=== PATIENT | male | born 2000 | race Caucasian/White ===

== ENCOUNTER 2024-02-07 20:25 | Emergency (ER) | payer OTHER, SELFPAY ==
[2024-02-07 20:37] VITALS: BP 130/89
--- NOTE | 2024-02-07 22:46 | ED.GENMED ---
History of Present Illness
General
Chief Complaint: Cough
Source: patient
Exam Limitations: none
Time Seen by Provider: 02/07/24 22:46
Nursing documentation reviewed up to this point in time: agreed with
Travel History
Have you had any contact with someone who has COVID-19?: No
Do you have any symptoms of coronavirus? Fever > 100 degrees, chills, cough, shortness of breath, sore throat, loss of taste or smell, muscle aches, or headache?: No
History of Present Illness
History of Present Illness:
Patient presents to ED secondary to persistent cough along with shortness of breath, as well as decreased appetite over the past 1 week. Patient was evaluated at different ED 4 days ago, where he tested negative for COVID, influenza, as well as
chest x-ray. Patient was prescribed amoxicillin at that visit, which appeared to improve his symptoms when it became worse again over the past 24 hours. Denies chest pain. Denies nausea, vomiting, or diarrhea. Denies headache. Denies sore
throat. Denies rash. Denies recent travel. Denies sick contact.
Past History
Past History
ED Past Medical History: Asthma, IDDM and Psychiatric
ED Past Surgical History: Urological (Circumcision October 2018)
Social History
Tobacco: Vaping
Alcohol: None
Drug: Marijuana
Personal: Single
Living: with family
Employment: Employed
Family History
Family History: Diabetes
Review of Systems
Review of Systems
Allergies reviewed?: Yes
All Other Systems: ROS reviewed and negative except as documented in HPI and ROS
Constitutional: Reports no symptoms; Denies fever
EENT: Reports no symptoms
Respiratory: Reports cough and trouble breathing
Cardiac: Reports no symptoms
ABD/GI: Reports no symptoms; Denies nausea, vomiting or diarrhea
Musculoskeletal: Reports muscle pain
Skin: Reports no symptoms; Denies rash
Neurological: Reports no symptoms; Denies headache
Phy Exam
Physical Exam
Physical Exam:
Physical Exam
General: mild distress, not acutely ill. afebrile
Head: nc/at. eomi
Neck: supple. no meningeal signs.
Heart: s1/s2 regular rate and rhythm, no murmur. equal radial pulses.
Lungs: mild respiratory distress. wheezing noted at bases.
Abdomen: normal bowel sounds. not tender.
Neuro: alert and oriented. no focal neurological deficits
Skin: no rash
Psychiatric: well kept. interactive and cooperative
Extremities: no edema. no calf tenderness.
Course
Orders/Labs/Results
Orders:
Orders
02/07/24 22:46
CR Chest - 2 Views Urgent
Comment:
Reason For Exam: cough/sob
02/07/24 23:33
0.9% Sodium Chloride 1000 ml [Nss] 1,000 ml IV BOLUS
Benzonatate [Tessalon Perles] 200 mg PO NOW STA
Dexamethasone Sod Phosphate [Decadron] 10 mg IV NOW STA
Ipratropium/Albuterol Sulfate [Duoneb] 3 ml INH R NOW STA
Ketorolac [Toradol] 15 mg IV NOW STA
02/07/24 23:34
Ipratropium/Albuterol Sulfate [Duoneb] 3 ml INH R NOW ONE
02/07/24 23:54
Basic Metabolic Panel Urgent
Complete Blood Count/With Diff Urgent
Magnesium Urgent
02/07/24 23:59
COVID-19 Antigen Urgent
Source: Nasal Swab
Influenza A+B Rapid Molecular Urgent
OVIDIO Source: Nasal Swab
Specimen Description:
02/08/24 01:52
Azithromycin [Zithromax] 500 mg PO NOW STA
Abnormal Lab Results
02/07/24
23:54
Absolute Lymphs (auto) 3.5 H 10^3/uL
(1.2-3.4)
Carbon Dioxide 20 L mmol/L
(22-30)
Creatinine 0.6 L mg/dL
(0.7-1.3)
Glucose 141 H mg/dl
(70-99)
02/07/24 23:54
02/07/24 23:54
Vital Signs
Initial and Last Documented VS:
Initial Vital Signs
Temp Pulse Resp BP Pulse Ox
98.8 F 110 18 130/89 96
02/07/24 20:37 02/07/24 20:37 02/07/24 20:37 02/07/24 20:37 02/07/24 20:37
Last Documented Vital Signs
Temp Pulse Resp BP Pulse Ox
98.8 F 110 18 101/58 95
02/07/24 20:37 02/07/24 20:37 02/07/24 20:37 02/08/24 01:00 02/08/24 00:41
MDM/Problems Addressed
MDM/Problems Addressed:
Chest x-ray: No acute findings. Patient with significant improvement symptoms after treatment.
History and exam consistent with likely acute bronchitis with bronchospasm with underlying asthma history. Patient will be given Zithromax along with short course of prednisone as well as cough medication. Advised PCP follow-up next week for
reevaluation. Patient expresses understanding at time of discharge.
*Critical Care Note
Total Time (30-74mins, 75-104mins- exclusive of procedures): Not Applicable
ED Attending Note
-
Portions of this chart may have been created with voice recognition software.� Occasional wrong word or��sound alike� substitutions may have occurred due to the inherent limitations of voice recognition software.
Discharge Plan
Departure
Patient Disposition: Home (Routine Discharge)
Date of Disposition: 02/08/24
Time of Disposition: 01:49
Patient with high blood pressure during this ER visit?: Yes
Condition: Good
Discharge Problem:
Acute bronchitis
Instructions: Acute Bronchitis, Adult (DC)
Prescriptions:
New
prednisone 50 mg tablet
50 mg PO DAILY Qty: 2 0RF
benzonatate 100 mg capsule
100 mg PO TID PRN (Reason: Cough) Qty: 14 0RF
azithromycin [Zithromax] 250 mg tablet
250 mg PO DAILY 4 Days Qty: 4 0RF
No Action
insulin glargine [Lantus U-100 Insulin] 100 unit/mL Solution
35 unit SC HS
insulin aspart U-100 [Novolog U-100 Insulin aspart] 100 unit/mL Solution
1 sliding scale dose SC DIRECTED
Rx Instructions:
24-40 units
alprazolam 0.5 mg Tablet
0.5 mg PO HS PRN (Reason: ANXIETY)
albuterol sulfate 90 mcg/actuation HFA aerosol inhaler
2 puff INHALATION R Q4HPRN PRN (Reason: WHEEZING)
(DME) Blood Glucose Test 1 EACH strip
1 ea MC QID Qty: 200 0RF
Rx Instructions:
CONTOUR NEXT test strips. Test before each meal and bedtime
budesonide-formoterol [Symbicort] 1 PUFF HFA aerosol inhaler
2 puff inhalation R BID 30 Days Qty: 1 0RF
(DME) lancets 1 EACH misc
1 ea MC QID Qty: 200 0RF
Rx Instructions:
Contour Next lancets to test QID as directed
Referrals:
Sushant Ballard MD [Family Provider] -
Activity Restrictions/Additional Instructions:
As discussed, please follow-up with your primary care physician next week for reevaluation. Your prescriptions have been sent electronically to [facility] in [place].
Interventions
Interventions:
*Risk Screen - Suicide Last Done: 02/07/24 20:37
*General Assessment Last Done: 02/07/24 20:37
*Neglect/Abuse Screening Last Done: 02/07/24 20:37
ED- Fall Risk Assessment Last Done: 02/08/24 00:42
*ED COVID-19 Vaccine History Last Done: 02/08/24 02:13
*Nursing Disposition Last Done: 02/08/24 02:13
ED- Pulmonary Assessment Last Done: 02/08/24 00:42
Discharge Date and Time
Discharge Date/Time: 02/08/24 02:13
[2024-02-07 23:54] VITALS: BP 144/96
[2024-02-07] MEDS: NSS 1000 IV (23:59)
[2024-02-08] VITALS: BP 126/85
[2024-02-08] MEDS: DECADRON 10 MG IV (00:02)
[2024-02-08] MEDS: TORADOL 15 MG IV (00:03)
[2024-02-08] MEDS: DUONEB 3 ML INH ×2 (00:03→00:04)
[2024-02-08] MEDS: TESSALON PERLES 200 MG PO (00:04)
[2024-02-08 00:05] VITALS: BMI 31.5
[2024-02-08 00:30] LABS: COVID-19 Antigen Negative (Negative)
[2024-02-08 00:34] LABS: Blood Urea Nitrogen 10 mg/dl (9-20); Calcium 10.1 mg/dl (8.4-10.2); Carbon Dioxide 20 mmol/L (22-30); Chloride 103 mmol/L (98-107); Estimated Creatinine Clearance > 125 ml/min; Glucose 141 mg/dl (70-99); Magnesium 1.9 mg/dl (1.6-2.3); Potassium 4.1 mmol/L (3.5-5.1); Sodium 138 mmol/L (135-145); eGFR > 60.00
[2024-02-08 00:38] LABS: % Basophils 0.6 % (0-2); % Eosinophils 1.4 % (0-6); % Immature Granulocytes 0.3 % (0-0.5); % Lymphocytes 38.7 % (20.5-51.1); Absolute Basophils 0.1 10^3/uL (0-0.2); Absolute Eosinophils 0.1 10^3/uL (0-0.7); Absolute Lymphocytes 3.5 10^3/uL (1.2-3.4); Absolute Monocytes 0.5 10^3/uL (0.1-0.6); Absolute Neutrophils 4.9 10^3/uL (1.4-6.5); Hemoglobin 15.4 g/dL (13.0-18.0); Mean Corp Hgb Conc. 35.8 g/dL (33.0-37.0); Mean Corpuscular Hgb 29.7 pg (27.0-31.0); Mean Platelet Volume 10.2 fL (7.4-10.4); Nucleated Red Blood Cells % 0 % (-); Platelet Count 257 10^3/uL (130-400); Red Blood Cell Count 5.18 10^6/uL (4.70-6.10); Red Cell Dist. Width 12.2 % (11.5-14.5)
[2024-02-08 01:00] VITALS: BP 101/58
[2024-02-08] MEDS: ZITHROMAX 500 MG PO (01:58)
== END 2024-02-08 02:13 | disposition home or self-care (01) ==
LOC: EMR 20:25
PROVIDERS: EMERGENCY PHYSICIAN Emergency Medicine; FAMILY PHYSICIAN Family Medicine
DX: J20.9 Acute bronchitis, unspecified (principal); F17.290 Nicotine dependence, other tobacco product, uncomplicated
CPT/HCPCS: 99284; 96374; 96375; 96361; 94640; 71046; 80048; 83735; 85025; 87502; 87811

== ENCOUNTER 2024-05-14 00:23 | Emergency (ER) | payer OTHER, SELFPAY ==
[2024-05-14 00:44] VITALS: BP 130/83
--- NOTE | 2024-05-14 01:03 | ED.GENMED ---
History of Present Illness
General
Chief Complaint: Chest Problem
Source: patient
Exam Limitations: none
Time Seen by Provider: 05/14/24 00:51
History of Present Illness
History of Present Illness:
This is a 23 year old male that comes in with c/o left sided chest pain. States that he started on Friday with his chest feeling weird. State that it feels like it did when he had the Pneumomediastinum. States that it is hard to take a deep breath.
States that he felt like his heart was racing and it would come and go. States that he feels better when he is laying in bed but when he is up moving around the pain gets worse. States that he has also had diarrhea. Denies any fever, chills, abd
pain, nausea, vomiting, headache, dizziness, urinary burning.
Past History
Past History
ED Past Medical History: Asthma, IDDM, Psychiatric (Anxiety, Depression, OCD) and Other (Pilonidal cyst, Pneumomediastinum. )
ED Past Surgical History: Urological (Circumcision October 2018)
Social History
Tobacco: Vaping
Alcohol: Occasional
Drug: Marijuana
Personal: Single
Living: with family
Employment: Employed
Family History
Family History: Diabetes
Review of Systems
Review of Systems
All Other Systems: ROS reviewed and negative except as documented in HPI and ROS
Constitutional: Reports no symptoms; Denies fever or chills
EENT: Reports no symptoms
Respiratory: Reports trouble breathing; Denies cough
Cardiac: Reports chest pain
ABD/GI: Reports diarrhea; Denies abdominal pain, nausea or vomiting
: Reports no symptoms; Denies dysuria, frequency or urgency
Musculoskeletal: Reports no symptoms
Skin: Reports no symptoms
Neurological: Reports no symptoms; Denies dizzy or headache
Psychiatric: Reports no symptoms
Phy Exam
General Physical Exam
General Presentation: no apparent distress
General age: appears stated age
General Skin: warm and dry
General Habitus: normal
General Mental: alert
General Hydration: appears well hydrated
ENT Exam
ENT Exam: TM's normal, pharynx normal and neck supple
Eye Exam
Eye Exam: EOMI
Cardiovascular Exam
Cardiovascular Exam: no edema, normal peripheral pulses and irregularly irregular
Pulmonary Exam
Pulmonary Exam: lungs clear, no respiratory distress, no rales, chest non tender, no crackles, no rhonchi, no wheezing and no cough
Gastrointestinal Exam
Gastrointestinal Exam: normal bowel sounds, non tender, soft, no organomegaly, no pulsatile mass and non distended
Musculoskeletal Exam
Musculoskeletal Exam: full ROM and no edema
Skin Exam
Skin Exam: normal color, warm/dry, no rash and no petechia
Psychiatric Exam
Psychiatric Exam: normal mood/affect
Course
Orders/Labs/Results
Orders:
Orders
05/14/24 00:36
EKG [Electrocardiogram (*1)] Urgent
Reason for Study: Chest Pain
EKG- Treatment ONCE
05/14/24 01:02
Ketorolac [Toradol] 30 mg IV NOW STA
05/14/24 01:24
Complete Blood Count/With Diff Urgent
Comprehensive Metabolic Panel Urgent
Troponin I Urgent
05/14/24 02:[address] [CT Chest Pe Study] Urgent
Comment: hx of pneumedastinum
Reason For Exam: chest pain r/o pe
Abnormal Lab Results
05/14/24
01:24
RBC 4.67 L 10^6/uL
(4.70-6.10)
Carbon Dioxide 18 L mmol/L
(22-30)
Creatinine 0.6 L mg/dL
(0.7-1.3)
Glucose 269 H mg/dl
(70-99)
05/14/24 01:24
0621/24 01:24
Vital Signs
Initial and Last Documented VS:
Initial Vital Signs
Temp Pulse Resp BP Pulse Ox
98.4 F 66 16 130/83 98
05/14/24 00:44 05/14/24 00:44 05/14/24 00:44 05/14/24 00:44 05/14/24 00:44
Last Documented Vital Signs
Temp Pulse Resp BP Pulse Ox
98.4 F 66 16 130/83 98
05/14/24 00:44 05/14/24 00:44 05/14/24 00:44 05/14/24 00:44 05/14/24 00:44
Manager Local consulted with Physician
Manager Local consulted with physician?: Yes
Name of Physician Consulted: Dr. Dominguez
MDM/Problems Addressed
Differential Diagnosis Includes:
PE, Pneumomediastinum,
MDM/Problems Addressed:
This is a 23 year old male that comes in with c/o left sided chest pain. States that this started on Friday. States that he feels like his heart is racing and that he is SOB. State that his chest hurts more with deep breathing. States that he feel
better when he lays down but moving his pain increases.
Will get labs and CT chest.
Back into see patient. Explained that his blood work is normal. CT of the chest ix negative for any PE and there is no Pneumomediastinum noted. Will have patient follow up with the Family doctor. Patient can use Tylenol and Ibuprofen for pain and
alternate. Patient to return with any concerns.
Chronic conditions affecting care:
History of Pneumomediastinum,
Chronic conditions affecting care: Asthma
Acute Exacerbation and/or Progression of Chronic Illness:
NA
*Radiology
Radiology exam reviewed: radiology read reviewed (Ct chest night hawk- good bolus, mild motion artifact. NO definite pulmonary embolism. Heart size s normal. NO acute thoracic aortic pathology. No focal consolidation. )
*EKG
Interpreted by ED Provider?: Yes
Heart Rate: 75
Rate: normal
Rhythm: sinus arrhythmia
[place]: normal axis
QRS Pattern: normal QRS
Ischemia: no ischemia
*Critical Care Note
Total Time (30-74mins, 75-104mins- exclusive of procedures): Not Applicable
ED Attending Note
-
Portions of this chart may have been created with voice recognition software.� Occasional wrong word or��sound alike� substitutions may have occurred due to the inherent limitations of voice recognition software.
Discharge Plan
Departure
Patient Disposition: Home (Routine Discharge)
Date of Disposition: 05/14/24
Time of Disposition: 03:34
Patient with high blood pressure during this ER visit?: Yes
Condition: Good
Covid-19: Not Applicable
Discharge Problem:
Chest pain
Instructions: Chest Pain PCP Follow Up, BLOOD PRESSURE
Prescriptions:
No Action
insulin glargine [Lantus U-100 Insulin] 100 unit/mL Solution
35 unit SC HS
insulin aspart U-100 [Novolog U-100 Insulin aspart] 100 unit/mL Solution
1 sliding scale dose SC DIRECTED
Rx Instructions:
24-40 units
alprazolam 0.5 mg Tablet
0.5 mg PO HS PRN (Reason: ANXIETY)
albuterol sulfate 90 mcg/actuation HFA aerosol inhaler
2 puff INHALATION R Q4HPRN PRN (Reason: WHEEZING)
(DME) Blood Glucose Test 1 EACH strip
1 ea MC QID Qty: 200 0RF
Rx Instructions:
CONTOUR NEXT test strips. Test before each meal and bedtime
budesonide-formoterol [Symbicort] 1 PUFF HFA aerosol inhaler
2 puff inhalation R BID 30 Days Qty: 1 0RF
(DME) lancets 1 EACH misc
1 ea MC QID Qty: 200 0RF
Rx Instructions:
Contour Next lancets to test QID as directed
prednisone 50 mg tablet
50 mg PO DAILY Qty: 2 0RF
benzonatate 100 mg capsule
100 mg PO TID PRN (Reason: Cough) Qty: 14 0RF
azithromycin [Zithromax] 250 mg tablet
250 mg PO DAILY 4 Days Qty: 4 0RF
Referrals:
Sushant Ballard MD [Family Provider] - Follow up in 2-3 days
Activity Restrictions/Additional Instructions:
As discussed, your blood work is normal. Your CT is negative for any Pulmonary embolism and there is no sign of Pneumomediastinum. You may use Tylenol and alternate with Ibuprofen. Follow up with the family doctor for recheck. IF YOU HAVE INCREASED
OR CHANGING CHEST PAIN, OR YOU HAVE ANY OTHER CONCERNS PLEASE RETURN TO THE EMERGENCY ROOM.
Interventions
Interventions:
*Risk Screen - Suicide Last Done: 05/14/24 00:44
*General Assessment Last Done: 05/14/24 00:44
*Neglect/Abuse Screening Last Done: 05/14/24 00:44
ED- Fall Risk Assessment Last Done: 05/14/24 00:44
*ED COVID-19 Vaccine History Last Done: 05/14/24 00:44
ED- Cardiac Assessment Last Done: 05/14/24 01:25
ED- Pulmonary Assessment Last Done: 05/14/24 01:25
Discharge Date and Time
Print Language: ARMENIAN
[2024-05-14] MEDS: TORADOL 30 MG IV (01:24)
[2024-05-14 01:25] VITALS: BMI 30.9
[2024-05-14 01:37] LABS: % Basophils 0.7 % (0-2); % Eosinophils 1.5 % (0-6); % Immature Granulocytes 0.1 % (0-0.5); % Lymphocytes 36.4 % (20.5-51.1); % Monocytes 4.8 % (1.7-9.3); % Neutrophils 56.5 % (42.2-75.2); Absolute Basophils 0.1 10^3/uL (0-0.2); Absolute Eosinophils 0.1 10^3/uL (0-0.7); Absolute Lymphocytes 2.7 10^3/uL (1.2-3.4); Absolute Monocytes 0.4 10^3/uL (0.1-0.6); Absolute Neutrophils 4.1 10^3/uL (1.4-6.5); Hematocrit 39.3 % (39.0-52.0); Mean Corp Hgb Conc. 35.6 g/dL (33.0-37.0); Mean Corpuscular Volume 84.2 fL (80.0-94.0); Mean Platelet Volume 10.4 fL (7.4-10.4); Nucleated Red Blood Cells % 0 % (-); Platelet Count 233 10^3/uL (130-400); Red Blood Cell Count 4.67 10^6/uL (4.70-6.10); Red Cell Dist. Width 12.4 % (11.5-14.5); White Blood Cell Count 7.3 10^3/uL (4.8-10.8)
[2024-05-14 01:52] LABS: AST (SGOT) 33 U/L (17-59); Albumin 4.6 g/dl (3.5-5.0); Alkaline Phosphatase 79 U/L (38-126); Blood Urea Nitrogen 15 mg/dl (9-20); Calcium 10.1 mg/dl (8.4-10.2); Carbon Dioxide 18 mmol/L (22-30); Chloride 103 mmol/L (98-107); Estimated Creatinine Clearance > 125 ml/min; Glucose 269 mg/dl (70-99); Potassium 3.7 mmol/L (3.5-5.1); Sodium 137 mmol/L (135-145); Total Bilirubin 0.4 mg/dl (0.2-1.3); Total Protein 7.1 g/dl (6.3-8.2); eGFR > 60.00
[2024-05-14 02:02] LABS: ALT (SGPT) 30 U/L (0-50)
[2024-05-14 02:05] LABS: Troponin I 0.012 ng/ml
[2024-05-14 03:36] VITALS: BP 116/75
== END 2024-05-14 03:49 | disposition home or self-care (01) ==
LOC: EMR 00:23
PROVIDERS: Clinical Nurse Specialist Family Health; EMERGENCY PHYSICIAN Student in an Organized Health Care Education/Training Program; FAMILY PHYSICIAN Family Medicine
DX: R07.89 Other chest pain (principal); R03.0 Elevated blood-pressure reading, without diagnosis of hypertension; F17.290 Nicotine dependence, other tobacco product, uncomplicated; E11.9 Type 2 diabetes mellitus without complications; J45.909 Unspecified asthma, uncomplicated
CPT/HCPCS: 99285; 96374; 71275; 80053; 84484; 85025; 93005; 99284; Q9967

== ENCOUNTER 2024-12-04 04:07 | Emergency (ER) | payer OTHER, SELFPAY ==
[2024-12-04 04:17] VITALS: BP 134/87
--- NOTE | 2024-12-04 04:33 | ED.GENMED ---
History of Present Illness
General
Chief Complaint: Cough
Source: patient
Exam Limitations: none
Time Seen by Provider: 12/04/24 04:29
History of Present Illness
History of Present Illness:
See MDM
Past History
Past History
ED Past Medical History: Asthma, IDDM, Psychiatric (Anxiety, Depression, OCD) and Other (Pilonidal cyst, Pneumomediastinum. )
ED Past Surgical History: Urological (Circumcision October 2018)
Social History
Tobacco: Vaping
Alcohol: Occasional
Drug: Marijuana
Personal: Single
Living: with family
Employment: Employed
Family History
Family History: Diabetes
Phy Exam
Physical Exam
Physical Exam:
See MDM
Course
Orders/Labs/Results
Orders:
Orders
12/04/24 04:32
CR Chest - 2 Views Urgent
Comment:
Reason For Exam: Cough and SOB
12/04/24 04:35
COVID-19 Antigen Urgent
Source: Nasal Swab
Influenza A+B Rapid Molecular Urgent
OVIDIO Source: Nasal Swab
Specimen Description:
Vital Signs
Initial and Last Documented VS:
Initial Vital Signs
Temp Pulse Resp BP Pulse Ox
99.2 F 98 18 134/87 96
12/04/24 04:17 12/04/24 04:17 12/04/24 04:17 12/04/24 04:17 12/04/24 04:17
Last Documented Vital Signs
Temp Pulse Resp BP Pulse Ox
99.2 F 98 18 134/87 96
12/04/24 04:17 12/04/24 04:17 12/04/24 04:17 12/04/24 04:17 12/04/24 04:17
MDM/Problems Addressed
Differential Diagnosis Includes:
HPI and MDM Narrative:
24-year-old male presenting with chest discomfort and cough. He states he has been feeling unwell for the past several days. He has a dry cough. He does have sick contacts at work. Patient states pain is worse when he takes a deep breath. On
exam, he is extremely well-appearing nontoxic. Lungs are clear. There is a mild bronchospastic cough. Will obtain COVID and flu and chest x-ray
Physical exam
General: Well appearing and non-toxic
HEENT: protecting airway
Neck: appears supple
CV: No evidence of cyanosis. Regular rate and rhythm
Resp: No accessory muscle use. Lungs clear
Abd: Non-distended
Extremities: No deformities
Neuro: alert
Psych: Normal affect
Skin: Intact
Problems Addressed including Acute and Chronic Conditions affecting care:
1. Viral syndrome
Acuity: acute
Prognosis: stable
Details: Will obtain COVID and flu testing. Will obtain chest x-ray
Updates
Chest x-ray clear and viral testing negative. Discussed return precautions
Differential Diagnosis (but not limited to): COVID, flu, pneumonia, pleuritic chest
Testing considered: EKG but symptoms appear to be respiratory
Drug therapy (if applicable): OTC meds, please see d/c instruction regarding Rx drugs
Amount and/or Complexity of Data Reviewed
Clinical info obtained from: Patient
External data reviewed: N/A
Labs I independently reviewed (but not limited to): N/A
Radiology: X-ray independently reviewed: Chest x-ray clear
Pulse Ox: not hypoxic
EKG independently reviewed: N/A
Associate Professor Of Management: N/A
Critical Care: N/A
Risk of Complication:
Social Determinants of health: Good social support
Discussed with other providers: N/A
Escalation of Care includes Admit/Obs: After being observed in the Emergency Department, pt stable for discharge.
Occasional wrong word or 'sound a like' substitutions may have occurred due to the inherent limitations of voice recognition software. Read the chart carefully and recognize, using context, where substitutions have occurred.
*Critical Care Note
Total Time (30-74mins, 75-104mins- exclusive of procedures): Not Applicable
ED Attending Note
-
Portions of this chart may have been created with voice recognition software.� Occasional wrong word or��sound alike� substitutions may have occurred due to the inherent limitations of voice recognition software.
Discharge Plan
Departure
Patient Disposition: Home (Routine Discharge)
Date of Disposition: 12/04/24
Time of Disposition: 06:42
Patient with high blood pressure during this ER visit?: No
Discharge Problem:
Upper respiratory infection, viral
Instructions: Viral Upper Respiratory Infection, Adult (DC)
Prescriptions:
No Action
insulin glargine [Lantus U-100 Insulin] 100 unit/mL Solution
35 unit SC HS
insulin aspart U-100 [Novolog U-100 Insulin aspart] 100 unit/mL Solution
1 sliding scale dose SC DIRECTED
Rx Instructions:
24-40 units
alprazolam 0.5 mg Tablet
0.5 mg PO HS PRN (Reason: ANXIETY)
albuterol sulfate 90 mcg/actuation HFA aerosol inhaler
2 puff INHALATION R Q4HPRN PRN (Reason: WHEEZING)
(DME) Blood Glucose Test 1 EACH strip
1 ea MC QID Qty: 200 0RF
Rx Instructions:
CONTOUR NEXT test strips. Test before each meal and bedtime
budesonide-formoterol [Symbicort] 1 PUFF HFA aerosol inhaler
2 puff inhalation R BID 30 Days Qty: 1 0RF
(DME) lancets 1 EACH misc
1 ea MC QID Qty: 200 0RF
Rx Instructions:
Contour Next lancets to test QID as directed
prednisone 50 mg tablet
50 mg PO DAILY Qty: 2 0RF
benzonatate 100 mg capsule
100 mg PO TID PRN (Reason: Cough) Qty: 14 0RF
azithromycin [Zithromax] 250 mg tablet
250 mg PO DAILY 4 Days Qty: 4 0RF
Activity Restrictions/Additional Instructions:
Please return for any worsening symptoms.
You may return at any time if you have further concerns.
Please follow up with your doctor at the first available appointment, preferably this week.
Thank you for choosing [facility].
Interventions
Interventions:
*Risk Screen - Suicide Last Done: 12/04/24 04:36
*General Assessment Last Done: 12/04/24 04:36
*Neglect/Abuse Screening Last Done: 12/04/24 04:36
*ED COVID-19 Vaccine History Last Done: 12/04/24 04:36
ED- Pulmonary Assessment Last Done: 12/04/24 04:36
Discharge Date and Time
Print Language: HUNGARIAN
[2024-12-04 04:36] VITALS: BMI 31.1
[2024-12-04 04:57] LABS: COVID-19 Antigen Negative (Negative)
[2024-12-04 06:50] VITALS: BP 138/81
== END 2024-12-04 07:00 | disposition home or self-care (01) ==
LOC: EMR 04:07
PROVIDERS: EMERGENCY PHYSICIAN Student in an Organized Health Care Education/Training Program; FAMILY PHYSICIAN Family Medicine
DX: J06.9 Acute upper respiratory infection, unspecified (principal); R07.89 Other chest pain; Z11.52 Encounter for screening for COVID-19; E11.9 Type 2 diabetes mellitus without complications; J45.909 Unspecified asthma, uncomplicated; F41.9 Anxiety disorder, unspecified; F32.A Depression, unspecified; F42.9 Obsessive-compulsive disorder, unspecified; F17.290 Nicotine dependence, other tobacco product, uncomplicated; Z79.4 Long term (current) use of insulin; Z83.3 Family history of diabetes mellitus
CPT/HCPCS: 99283; 71046; 87502; 87811

== ENCOUNTER 2024-12-13 19:54 | Emergency (ER) | payer OTHER, SELFPAY ==
[2024-12-13 20:02] VITALS: BP 148/98
[2024-12-13 20:28] LABS: % Basophils 0.5 % (0-2); % Eosinophils 0.6 % (0-6); % Immature Granulocytes 0.4 % (0-0.5); % Lymphocytes 21.1 % (20.5-51.1); % Monocytes 5.3 % (1.7-9.3); % Neutrophils 72.1 % (42.2-75.2); Absolute Basophils 0.1 10^3/uL (0-0.2); Absolute Eosinophils 0.1 10^3/uL (0-0.7); Absolute Immature Granulocytes 0.1 10^3/uL (0-0.05); Absolute Lymphocytes 2.5 10^3/uL (1.2-3.4); Absolute Monocytes 0.6 10^3/uL (0.1-0.6); Absolute Neutrophils 8.7 10^3/uL (1.4-6.5); Hematocrit 41.6 % (39.0-52.0); Mean Corp Hgb Conc. 33.7 g/dL (33.0-37.0); Mean Corpuscular Volume 86.1 fL (80.0-94.0); Mean Platelet Volume 9.3 fL (7.4-10.4); Nucleated Red Blood Cells % 0 % (-); Platelet Count 363 10^3/uL (130-400); Red Blood Cell Count 4.83 10^6/uL (4.70-6.10); Red Cell Dist. Width 11.9 % (11.5-14.5); White Blood Cell Count 12.1 10^3/uL (4.8-10.8)
[2024-12-13 20:31] LABS: Urine Albumin 1+ (Neg - Trace); Urine Bilirubin Negative (Negative); Urine Character Slightly Cloudy (Clear); Urine Color Yellow; Urine Glucose Negative (Negative); Urine Ketone Negative (Negative); Urine Leukocyte 2+ (Negative); Urine Nitrite Negative (Negative); Urine Occult Blood 4+ (Negative); Urine Urobilinogen Negative (Neg - 1+)
[2024-12-13 20:47] LABS: ALT (SGPT) 16 U/L (0-50); AST (SGOT) 21 U/L (17-59); Albumin 4.2 g/dl (3.5-5.0); Alkaline Phosphatase 129 U/L (38-126); Blood Urea Nitrogen 6 mg/dl (9-20); Calcium 9.5 mg/dl (8.4-10.2); Carbon Dioxide 28 mmol/L (22-30); Chloride 98 mmol/L (98-107); Glucose 144 mg/dl (70-99); Potassium 3.9 mmol/L (3.5-5.1); Sodium 138 mmol/L (135-145); Total Bilirubin 0.6 mg/dl (0.2-1.3); Total Protein 7.8 g/dl (6.3-8.2); eGFR > 60.00
[2024-12-13 20:50] LABS: Urine Bacteria Few (Negative); Urine Red Blood Cell 80-90 /HPF (0-2); Urine White Cell 60-70 /HPF (0-5)
[2024-12-13 21:36] VITALS: BP 128/76
[2024-12-13 21:37] VITALS: BMI 30.5
[2024-12-13] MEDS: BACTRIM DS 800 MG/160 MG 1 TABLET PO (21:58)
--- NOTE | 2024-12-13 22:42 | ED.GENMED ---
History of Present Illness
General
Chief Complaint: Urinary Symptoms
Source: patient
Exam Limitations: none
Time Seen by Provider: 12/13/24 21:33
Nursing documentation reviewed up to this point in time: agreed with
History of Present Illness
History of Present Illness:
Patient to ED wi complaint of pain with urination. Symptoms started a few days ago. Denies fever/chills. Denies any testicular pain/swelling. No penile discharge. Brought self to ED for eval,
Past History
Past History
ED Past Medical History: Asthma, IDDM, Psychiatric (Anxiety, Depression, OCD) and Other (Pilonidal cyst, Pneumomediastinum. )
ED Past Surgical History: Urological (Circumcision October 2018)
Social History
Tobacco: Vaping
Alcohol: Occasional
Drug: Marijuana
Personal: Single
Living: with family
Employment: Employed
Family History
Family History: Diabetes
Review of Systems
Review of Systems
Allergies reviewed?: Yes
All Other Systems: ROS reviewed and negative except as documented in HPI and ROS
Constitutional: Reports no symptoms
EENT: Reports no symptoms
Respiratory: Reports no symptoms
Cardiac: Reports no symptoms
ABD/GI: Reports no symptoms
: Reports dysuria
Musculoskeletal: Reports no symptoms
Skin: Reports no symptoms
Neurological: Reports no symptoms
Psychiatric: Reports no symptoms
Phy Exam
General Physical Exam
General Presentation: well appearing and no apparent distress
General age: appears stated age
General Skin: warm and dry
General Habitus: normal
General Mental: alert
Gastrointestinal Exam
Gastrointestinal Exam: normal bowel sounds, non tender, no organomegaly and no cva tenderness
Genitourinary Exam Male
Exam Male: circumcised, no discharge, normal external genitalia, normal testicular exam, no evidence of trauma, no lesions, no testicular swelling and no testicular tenderness
Musculoskeletal Exam
Musculoskeletal Exam: full ROM
Skin Exam
Skin Exam: normal color, warm/dry and no rash
Psychiatric Exam
Psychiatric Exam: normal mood/affect
Course
Orders/Labs/Results
Orders:
Orders
12/13/24 20:12
Complete Blood Count/With Diff Urgent
Comprehensive Metabolic Panel Urgent
Urinalysis Reflex To Culture Urgent
Date Specimen was Collected: 12/13/24
Time Specimen was Collected: 20:04
Urine Microscopic Reflex Cult Urgent
Urine Culture Urgent
OVIDIO Source: U
Specimen Description:
Date Specimen was Collected: 12/13/24
Time Specimen was Collected: 20:04
12/13/24 21:39
Add On- LAB Urgent
Tests Added?: Chlamydia/GC pcr urine
12/13/24 21:43
Sulfamethox./Trimethoprim Ds [Bactrim Ds 800 mg/160 mg] 1 tablet PO NOW STA
Abnormal Lab Results
12/13/24
20:12
WBC 12.1 H 10^3/uL
(4.8-10.8)
Abs Immat Gran (auto) 0.1 H 10^3/uL
(0-0.05)
Absolute Neuts (auto) 8.7 H 10^3/uL
(1.4-6.5)
BUN 6 L mg/dl
(9-20)
Creatinine 0.6 L mg/dL
(0.7-1.3)
Glucose 144 H mg/dl
(70-99)
Alkaline Phosphatase 129 H U/L
(38-126)
Ur Occult Blood Reflex 4+ A
(Negative)
Leukocyte Esterase Rfl 2+ A
(Negative)
Urine RBC 80-90 A /HPF
(0-2)
Urine WBC (Reflex) 60-70 A /HPF
(0-5)
Urine Bacteria (Reflex) Few A
(Negative)
Urine Albumin (Reflex) 1+ A
(Neg - Trace)
12/13/24 20:12
12/13/24 20:12
Vital Signs
Initial and Last Documented VS:
Initial Vital Signs
Temp Pulse Resp Pulse Ox
98.9 F 103 16 97
12/13/24 20:01 12/13/24 20:01 12/13/24 20:01 12/13/24 20:01
Last Documented Vital Signs
Temp Pulse Resp BP Pulse Ox
98.9 F 87 16 128/76 99
12/13/24 20:01 12/13/24 21:36 12/13/24 21:36 12/13/24 21:36 12/13/24 21:36
*Critical Care Note
Total Time (30-74mins, 75-104mins- exclusive of procedures): Not Applicable
Update Note
Update Note:
UA reflecting UTI. Will place on Bactrim DS bid. He denies sexual activity however I sent urine for GC/Chlamydia. Cultures are pending. Given instructions on s/s to retuen to ED and he is agreeable to plan.
ED Attending Note
-
Portions of this chart may have been created with voice recognition software.� Occasional wrong word or��sound alike� substitutions may have occurred due to the inherent limitations of voice recognition software.
Discharge Plan
Departure
Patient Disposition: Home (Routine Discharge)
Date of Disposition: 12/13/24
Time of Disposition: 21:43
Patient with high blood pressure during this ER visit?: No
Condition: Good
Covid-19: Not Applicable
Discharge Problem:
Acute UTI
Instructions: Urinary Tract Infection, Adult (DC)
Prescriptions:
New
sulfamethoxazole-trimethoprim [Bactrim DS] 800-160 mg tablet
1 tab PO BID Qty: 14 0RF
No Action
insulin glargine [Lantus U-100 Insulin] 100 unit/mL Solution
35 unit SC HS
insulin aspart U-100 [Novolog U-100 Insulin aspart] 100 unit/mL Solution
1 sliding scale dose SC DIRECTED
Rx Instructions:
24-40 units
alprazolam 0.5 mg Tablet
0.5 mg PO HS PRN (Reason: ANXIETY)
albuterol sulfate 90 mcg/actuation HFA aerosol inhaler
2 puff INHALATION R Q4HPRN PRN (Reason: WHEEZING)
(DME) Blood Glucose Test 1 EACH strip
1 ea MC QID Qty: 200 0RF
Rx Instructions:
CONTOUR NEXT test strips. Test before each meal and bedtime
budesonide-formoterol [Symbicort] 1 PUFF HFA aerosol inhaler
2 puff inhalation R BID 30 Days Qty: 1 0RF
(DME) lancets 1 EACH misc
1 ea MC QID Qty: 200 0RF
Rx Instructions:
Contour Next lancets to test QID as directed
prednisone 50 mg tablet
50 mg PO DAILY Qty: 2 0RF
benzonatate 100 mg capsule
100 mg PO TID PRN (Reason: Cough) Qty: 14 0RF
azithromycin [Zithromax] 250 mg tablet
250 mg PO DAILY 4 Days Qty: 4 0RF
Referrals:
Sushant Ballard MD [Family Provider] - Follow up in 2-3 days
Activity Restrictions/Additional Instructions:
Return to the emergency department for any changes in/worsening of your symptoms
Interventions
Interventions:
*Risk Screen - Suicide Last Done: 12/13/24 21:32
*General Assessment Last Done: 12/13/24 21:32
*Neglect/Abuse Screening Last Done: 12/13/24 21:32
*ED COVID-19 Vaccine History Last Done: 12/13/24 21:32
*Nursing Disposition Last Done: 12/13/24 22:04
ED-Male Genitourinary Assessment Last Done: 12/13/24 21:32
Discharge Date and Time
Discharge Date/Time: 12/13/24 22:05
Print Language: FRENCH
== END 2024-12-13 22:05 | disposition home or self-care (01) ==
LOC: EMR 19:54
PROVIDERS: Emergency Medicine; EMERGENCY PHYSICIAN Emergency Medicine; FAMILY PHYSICIAN Family Medicine
DX: N39.0 Urinary tract infection, site not specified (principal); J45.909 Unspecified asthma, uncomplicated; E11.9 Type 2 diabetes mellitus without complications; F17.290 Nicotine dependence, other tobacco product, uncomplicated; Z79.4 Long term (current) use of insulin
CPT/HCPCS: 99283; 80053; 81003; 81015; 85025; 87086; 87147; 87491; 87591

== ENCOUNTER 2025-02-21 02:22 | Emergency (ER) | payer OTHER, SELFPAY ==
[2025-02-21 02:24] VITALS: BP 138/94
[2025-02-21 02:49] LABS: % Basophils 0.4 % (0-2); % Eosinophils 1.1 % (0-6); % Immature Granulocytes 0.4 % (0-0.5); % Lymphocytes 43.6 % (20.5-51.1); % Monocytes 3.7 % (1.7-9.3); % Neutrophils 50.8 % (42.2-75.2); Absolute Eosinophils 0.1 10^3/uL (0-0.7); Absolute Lymphocytes 4.2 10^3/uL (1.2-3.4); Absolute Monocytes 0.4 10^3/uL (0.1-0.6); Absolute Neutrophils 4.9 10^3/uL (1.4-6.5); Hematocrit 42.6 % (39.0-52.0); Hemoglobin 14.9 g/dL (13.0-18.0); Mean Corpuscular Hgb 28.8 pg (27.0-31.0); Mean Corpuscular Volume 82.4 fL (80.0-94.0); Mean Platelet Volume 9.8 fL (7.4-10.4); Nucleated Red Blood Cells % 0 % (-); Platelet Count 263 10^3/uL (130-400); Red Blood Cell Count 5.17 10^6/uL (4.70-6.10); White Blood Cell Count 9.7 10^3/uL (4.8-10.8)
[2025-02-21 02:55] LABS: Urine Albumin Negative (Neg - Trace); Urine Bilirubin Negative (Negative); Urine Character Clear (Clear); Urine Color Yellow; Urine Glucose 4+ (Negative); Urine Ketone Negative (Negative); Urine Leukocyte Negative (Negative); Urine Nitrite Negative (Negative); Urine Occult Blood Negative (Negative); Urine Specific Gravity 1.015 (<1.030); Urine Urobilinogen Negative (Neg - 1+)
[2025-02-21 03:05] LABS: ALT (SGPT) 19 U/L (0-50); AST (SGOT) 22 U/L (17-59); Albumin 4.7 g/dl (3.5-5.0); Alkaline Phosphatase 87 U/L (38-126); Blood Urea Nitrogen 13 mg/dl (9-20); Calcium 10.1 mg/dl (8.4-10.2); Carbon Dioxide 23 mmol/L (22-30); Chloride 102 mmol/L (98-107); Glucose 394 mg/dl (70-99); Potassium 4.6 mmol/L (3.5-5.1); Sodium 137 mmol/L (135-145); Total Bilirubin 0.6 mg/dl (0.2-1.3); Total Protein 7.4 g/dl (6.3-8.2); eGFR > 60.00
[2025-02-21 03:27] VITALS: BP 115/78; BMI 32.0
--- NOTE | 2025-02-21 03:31 | EDRN ---
Pt says he has been on multiple antibiotics for uti since November. Pt is currently taking Bactrim BID. Pt has discomfort, sometimes pain in his lower back that occasionally wraps around to his abdomen. Pt has frequency, difficulty urinating and
sometimes burning. Pt denies fever/chills/cough, cp, sob, n/v/d/c. Pt says his blood sugars are uncontrolled, typically 200-250. Pt has a CGM on RUE. Pt did not take his lantus insulin last night.
--- NOTE | 2025-02-21 03:33 | ED.GENMED ---
History of Present Illness
General
Chief Complaint: Flank Pain
Source: patient
Exam Limitations: none
Time Seen by Provider: 02/21/25 03:31
Nursing documentation reviewed up to this point in time: agreed with
History of Present Illness
History of Present Illness:
Pleasant 24-year-old male presents the emergency department with right flank pain. He states it has been going on for the last 2 days. Patient has recently been on Bactrim. He has been having frequent urination. Patient is diabetic and forgot to
take his insulin this evening. In triage they tevin his blood and then he realized that he did not take his insulin so he took his evening dose of insulin prior to coming back to the main department.
Past History
Past History
ED Past Medical History: Asthma, IDDM, Psychiatric (Anxiety, Depression, OCD) and Other (Pilonidal cyst, Pneumomediastinum. )
ED Past Surgical History: Urological (Circumcision October 2018)
Social History
Tobacco: Vaping
Alcohol: Occasional
Drug: Marijuana
Personal: Single
Living: with family
Employment: Employed
Family History
Family History: Diabetes
Review of Systems
Review of Systems
Allergies reviewed?: Yes
All Other Systems: ROS reviewed and negative except as documented in HPI and ROS
Constitutional: Reports no symptoms
EENT: Reports no symptoms
Respiratory: Reports no symptoms
Cardiac: Reports no symptoms
ABD/GI: Denies abdominal pain or nausea
: Reports flank pain
Musculoskeletal: Reports no symptoms
Skin: Reports no symptoms
Neurological: Reports no symptoms
Endocrine: Reports no symptoms
Hematologic/Lymphatic: Reports no symptoms
Psychiatric: Reports no symptoms
Phy Exam
General Physical Exam
General Presentation: well appearing and no apparent distress
General Skin: warm and dry
General Habitus: normal
General Mental: alert
General Hydration: appears well hydrated
ENT Exam
ENT Exam: EOMI, pharynx normal, neck supple and normocephalic
Eye Exam
Eye Exam: PERRL, cornea clear and conjunctiva normal
Cardiovascular Exam
Cardiovascular Exam: regular rate/rhythm, no edema, no murmur and normal peripheral pulses
Pulmonary Exam
Pulmonary Exam: lungs clear, no respiratory distress, no rales, no crackles, no rhonchi, no stridor, no wheezing and no cough
Gastrointestinal Exam
Gastrointestinal Exam: normal bowel sounds, non tender, soft, no organomegaly, no pulsatile mass and non distended
Neurological Exam
Neurological Exam: alert, oriented x3, no motor deficits and speech normal
Musculoskeletal Exam
Musculoskeletal Exam: full ROM, no edema and neuro vasc intact
Skin Exam
Skin Exam: normal color, warm/dry, no rash, no petechia and other (Right CVA tenderness to palpation)
Psychiatric Exam
Psychiatric Exam: normal mood/affect
Sepsis
Sepsis Screening
Sepsis Assessment: Sepsis Ruled Out
Sepsis Screen
Sepsis Screen: Sepsis Ruled Out
Date: 02/21/25
Time: 05:26
Course
Orders/Labs/Results
Orders:
Orders
02/21/25 02:32
Complete Blood Count/With Diff Urgent
Comprehensive Metabolic Panel Urgent
Urinalysis Reflex To Culture Urgent
Date Specimen was Collected: 02/21/25
Time Specimen was Collected: 02:28
02/21/25 03:44
CT Abd/pel Without Iv Or Oral Urgent
Comment:
Reason For Exam: r flank pain
Abnormal Lab Results
02/21/25 02/21/25
02:32 03:58
Absolute Lymphs (auto) 4.2 H 10^3/uL
(1.2-3.4)
Glucose 394 H mg/dl
(70-99)
Urine Glucose 4+ A
(Negative)
POC Glucose 274 H mg/dl
(70-99)
02/21/25 02:32
02/21/25 02:32
Vital Signs
Initial and Last Documented VS:
Initial Vital Signs
Temp Pulse Resp BP Pulse Ox
98.7 F 68 20 138/94 98
02/21/25 02:24 02/21/25 02:24 02/21/25 02:24 02/21/25 02:24 02/21/25 02:24
Last Documented Vital Signs
Temp Pulse Resp BP Pulse Ox
98.7 F 61 14 115/78 98
02/21/25 02:24 02/21/25 03:27 02/21/25 03:27 02/21/25 03:27 02/21/25 03:27
*Critical Care Note
Total Time (30-74mins, 75-104mins- exclusive of procedures): Not Applicable
ED Attending Note
-
Portions of this chart may have been created with voice recognition software.� Occasional wrong word or��sound alike� substitutions may have occurred due to the inherent limitations of voice recognition software.
Discharge Plan
Departure
Patient Disposition: Home (Routine Discharge)
Date of Disposition: 02/21/25
Time of Disposition: 05:15
Patient with high blood pressure during this ER visit?: Yes
Condition: Good
Discharge Problem:
Acute flank pain
Instructions: Flank Pain (DC), Abdominal pain in adults - Discharge instructions
Prescriptions:
No Action
insulin glargine [Lantus U-100 Insulin] 100 unit/mL Solution
35 unit SC HS
insulin aspart U-100 [Novolog U-100 Insulin aspart] 100 unit/mL Solution
1 sliding scale dose SC AC
Rx Instructions:
24-40 units
alprazolam 0.5 mg Tablet
0.5 mg PO HS PRN (Reason: anxiety)
albuterol sulfate 90 mcg/actuation HFA aerosol inhaler
2 puff INHALATION R Q4HPRN PRN (Reason: WHEEZING)
budesonide-formoterol [Symbicort] 1 PUFF HFA aerosol inhaler
2 puff inhalation R BID 30 Days Qty: 1 0RF
sulfamethoxazole-trimethoprim [Bactrim DS] 800-160 mg Tablet
1 tab PO BID
Referrals:
Sushant Ballard MD [Family Provider] -
Activity Restrictions/Additional Instructions:
It was a pleasure meeting you and taking part in your care. We hope for your continued healing and wellness.
Please read discharge instructions in their entirety. However, they are for general education and may not describe your exact diagnosis at discharge. Information on your ER visit and medical conditions were discussed with you along with appropriate
follow up information...
If indicated, please take your medications as instructed and indicated on discharge paperwork.
Please schedule a follow up appointment as directed. Call to schedule an appointment
Please return to the emergency department with ANY change in, persisting, or worsening of symptoms. If any of your symptoms do not improve, or persist, or become more severe within 6-12 hours, please return to the emergency department for further
care.
Please return to the emergency department if you develop a headache, neck pain/stiffness, fever greater than 100.4F, chest pain, shortness of breath, persistent nausea, vomiting, slurred speech, difficulty walking, numbness/tingling, weakness, signs
of infection or any other symptoms that are worrisome to you.
If you have any questions or concerns please do not hesitate to call the Hospital at or E-mail me directly at [email or web address]
Interventions
Interventions:
*Risk Screen - Suicide Last Done: 02/21/25 02:24
*General Assessment Last Done: 02/21/25 03:27
*Neglect/Abuse Screening Last Done: 02/21/25 02:24
*ED- Fall Risk Assessment Last Done: 02/21/25 03:27
*ED COVID-19 Vaccine History Last Done: 02/21/25 03:27
NH-Krmwgk-Erukvxadbs Assessment Last Done: 02/21/25 03:27
ED-Male Genitourinary Assessment Last Done: 02/21/25 03:27
Discharge Date and Time
Print Language: SINGAPOREAN
[2025-02-21 04:00] LABS: Glucose - Point of Care 274 mg/dl (70-99)
[2025-02-21 05:38] VITALS: BP 127/83
== END 2025-02-21 05:47 | disposition home or self-care (01) ==
LOC: EMR 02:22
PROVIDERS: EMERGENCY PHYSICIAN Student in an Organized Health Care Education/Training Program; FAMILY PHYSICIAN Family Medicine
DX: R10.9 Unspecified abdominal pain (principal); E11.9 Type 2 diabetes mellitus without complications; J45.909 Unspecified asthma, uncomplicated; F41.8 Other specified anxiety disorders; F17.290 Nicotine dependence, other tobacco product, uncomplicated; F42.9 Obsessive-compulsive disorder, unspecified; Z83.3 Family history of diabetes mellitus
CPT/HCPCS: 99284; 74176; 80053; 81003; 82962; 85025

== ENCOUNTER 2025-03-29 23:59 | Emergency (ER) | payer OTHER, SELFPAY ==
[2025-03-30 00:20] VITALS: BP 134/80
[2025-03-30 00:57] LABS: % Basophils 0.6 % (0-2); % Eosinophils 1.1 % (0-6); % Immature Granulocytes 0.1 % (0-0.5); % Lymphocytes 34.4 % (20.5-51.1); % Monocytes 4.9 % (1.7-9.3); % Neutrophils 58.9 % (42.2-75.2); Absolute Basophils 0.1 10^3/uL (0-0.2); Absolute Eosinophils 0.1 10^3/uL (0-0.7); Absolute Monocytes 0.4 10^3/uL (0.1-0.6); Absolute Neutrophils 5.2 10^3/uL (1.4-6.5); Hematocrit 43.1 % (39.0-52.0); Hemoglobin 14.5 g/dL (13.0-18.0); Mean Corp Hgb Conc. 33.6 g/dL (33.0-37.0); Mean Corpuscular Hgb 28.9 pg (27.0-31.0); Mean Platelet Volume 10.7 fL (7.4-10.4); Nucleated Red Blood Cells % 0 % (-); Platelet Count 222 10^3/uL (130-400); Red Blood Cell Count 5.01 10^6/uL (4.70-6.10); Red Cell Dist. Width 12.8 % (11.5-14.5); Urine Albumin 3+ (Neg - Trace); Urine Bilirubin Negative (Negative); Urine Character Slightly Cloudy (Clear); Urine Color Yellow; Urine Glucose 3+ (Negative); Urine Ketone Negative (Negative); Urine Leukocyte 3+ (Negative); Urine Nitrite Negative (Negative); Urine Occult Blood 3+ (Negative); Urine Urobilinogen Negative (Neg - 1+); White Blood Cell Count 8.9 10^3/uL (4.8-10.8)
[2025-03-30 01:10] LABS: ALT (SGPT) 17 U/L (0-50); AST (SGOT) 20 U/L (17-59); Albumin 4.5 g/dl (3.5-5.0); Alkaline Phosphatase 59 U/L (38-126); Blood Urea Nitrogen 16 mg/dl (9-20); Calcium 9.2 mg/dl (8.4-10.2); Carbon Dioxide 24 mmol/L (22-30); Chloride 104 mmol/L (98-107); Glucose 245 mg/dl (70-99); Potassium 4.3 mmol/L (3.5-5.1); Sodium 142 mmol/L (135-145); Total Bilirubin 0.5 mg/dl (0.2-1.3); Total Protein 6.9 g/dl (6.3-8.2); eGFR > 60.00
[2025-03-30 01:29] LABS: Urine Squamous Cell 0-2 /LPF (Few)
[2025-03-30 01:30] LABS: Urine Bacteria Few (Negative); Urine White Cell 26-30 /HPF (0-5)
[2025-03-30 03:36] VITALS: BP 128/70
--- NOTE | 2025-03-30 04:04 | ED.GENMED ---
History of Present Illness
General
Chief Complaint: Flank Pain
Source: patient
Exam Limitations: none
Time Seen by Provider: 03/30/25 04:04
Nursing documentation reviewed up to this point in time: agreed with
History of Present Illness
History of Present Illness:
This is a 24 y/o male with a pmh of type one diabetes, anxiety, depression, asthma, who presents to the ER today with concerns of bilateral flank pain and dysuria. Patient reports that this has been going on for the past week. Patient reports that
he has had on and off UTIs since November and has not yet followed up with urology. Patient reports that his most recent UTI was a week ago. He presented to urgent care last week and was prescribed cefpodoxime which he finished 6 days ago. Patient
reports that this medication did help his symptoms but than the symptoms did return yesterday. Patient does have a history of diabetes and reports that he has had trouble controlling his sugars recently and has been trying to get in with his
rehabilitation clerk but get not get an appointment until months away. Patient does also have flank pain and vague abdominal pain but no prior hx of stones. He denies fevers or chills, nausea or vomiting, chest pain, sob. He denies penile discharge, he
denies chance of STDs/STIs.
Past History
Past History
ED Past Medical History: Asthma, IDDM, Psychiatric (Anxiety, Depression, OCD) and Other (Pilonidal cyst, Pneumomediastinum. )
ED Past Surgical History: Urological (Circumcision October 2018)
Social History
Tobacco: Vaping
Alcohol: Occasional
Drug: Marijuana
Personal: Single
Living: with family
Employment: Employed
Family History
Family History: Diabetes
Review of Systems
Review of Systems
All Other Systems: ROS reviewed and negative except as documented in HPI and ROS
Phy Exam
Physical Exam
Physical Exam:
General: Patient is well appearing and in no acute distress; non-toxic
Skin: Warm and dry, no rashes or lesions
Head: Normocephalic, atraumatic
Eyes: Sclera non-icteric. EOMs intact.
Cardiac: Regular rate and rhythm, no murmurs
Peripheral Vascular: No lower extremity swelling or edema
Pulm: Normal respiratory effort, no wheezes, rales, or rhonchi
Abdomen: Abdomen soft and non-tender to palpation, no CVA tenderness bilaterally
Neuro: CN II-XII intact, no focal neurologic deficits.
Psychiatric: Appropriate mood and affect.
Course
Orders/Labs/Results
Orders:
Orders
03/30/25 00:44
Complete Blood Count/With Diff Urgent
Comprehensive Metabolic Panel Urgent
Urinalysis Reflex To Culture Urgent
Date Specimen was Collected: 03/30/25
Time Specimen was Collected: 00:25
Urine Microscopic Reflex Cult Urgent
Urine Culture Urgent
OVIDIO Source: U
Specimen Description:
Date Specimen was Collected: 03/30/25
Time Specimen was Collected: 00:25
03/30/25 04:18
CT Abd/pel Without Iv Or Oral Urgent
Comment:
Reason For Exam: right flank pain
0.9% Sodium Chloride 1000 ml [Nss] 1,000 ml IV BOLUS
Ketorolac [Toradol] 15 mg IV NOW STA
Abnormal Lab Results
03/30/25
00:44
MPV 10.7 H fL
(7.4-10.4)
Glucose 245 H mg/dl
(70-99)
Ur Occult Blood Reflex 3+ A
(Negative)
Leukocyte Esterase Rfl 3+ A
(Negative)
Urine RBC 3-6 A /HPF
(0-2)
Urine WBC (Reflex) 26-30 A /HPF
(0-5)
Urine Bacteria (Reflex) Few A
(Negative)
Urine Glucose 3+ A
(Negative)
Urine Albumin (Reflex) 3+ A
(Neg - Trace)
03/30/25 00:44
03/30/25 00:44
Vital Signs
Initial and Last Documented VS:
Initial Vital Signs
Temp Pulse Resp BP Pulse Ox
97.8 F 82 22 134/80 96
03/30/25 00:20 03/30/25 00:20 03/30/25 00:20 03/30/25 00:20 03/30/25 00:20
Last Documented Vital Signs
Temp Pulse Resp BP Pulse Ox
97.8 F 65 16 117/77 98
03/30/25 00:20 03/30/25 07:00 03/30/25 05:18 03/30/25 07:00 03/30/25 03:36
MDM/Problems Addressed
Differential Diagnosis Includes:
ddx include acute cystitis, pyelonephritis, nephrolithiasis
MDM/Problems Addressed:
24 y/o male presents to the ER with concerns of recurrent UTIs since Nov. History has above. On PE, he is well appearing, in no acute distress, no CVA tenderness, abdomen soft and non-tender. He has been told to see a urologist but he has not yet
called for an appointment. His urinalysis is concerning for infection. CT negative for kidney stones. BS elevated today and there is a degree of glucosuria. Suspect recurrent UTIs from poorly controlled diabetes. Provided patient with endocrinology
referral as well as urology referral. Reviewed prior urine culture will initiate Bactrim, patient stable for discharge.
*Pulse Oximetry
Patient hypoxic: no
*Critical Care Note
Total Time (30-74mins, 75-104mins- exclusive of procedures): Not Applicable
Data Reviewed
Review of Other/Old Records Reveals: Records (reviewed prior ER physician documentation from UTIs in the past reviewed prior urine cultures )
Source: patient and records
ED Attending Note
-
Portions of this chart may have been created with voice recognition software.� Occasional wrong word or��sound alike� substitutions may have occurred due to the inherent limitations of voice recognition software.
Discharge Plan
Departure
Patient Disposition: Home (Routine Discharge)
Date of Disposition: 03/30/25
Time of Disposition: 06:29
Patient with high blood pressure during this ER visit?: Yes
Discharge Problem:
Urinary tract infection
Instructions: Urinary tract infections in adults, BLOOD PRESSURE
Prescriptions:
New
sulfamethoxazole-trimethoprim [Bactrim DS] 800-160 mg tablet
1 tab PO BID 7 Days Qty: 14 0RF
No Action
insulin glargine [Lantus U-100 Insulin] 100 unit/mL Solution
35 unit SC HS
insulin aspart U-100 [Novolog U-100 Insulin aspart] 100 unit/mL Solution
1 sliding scale dose SC AC
Rx Instructions:
24-40 units
alprazolam 0.5 mg Tablet
0.5 mg PO HS PRN (Reason: anxiety)
albuterol sulfate 90 mcg/actuation HFA aerosol inhaler
2 puff INHALATION R Q4HPRN PRN (Reason: WHEEZING)
budesonide-formoterol [Symbicort] 1 PUFF HFA aerosol inhaler
2 puff inhalation R BID 30 Days Qty: 1 0RF
Referrals:
Ana Rodríguez MD [Non-Admitting Privileges] -
Sushant Ballard MD [Family Provider] -
Nithin Suggs MD [Active] - Call in 1-3 days for appt
Activity Restrictions/Additional Instructions:
Your urinalysis is concerning for infection.
Bactrim has been sent to your pharmacy. Please take 1 tablet twice daily for 7 days.
With your recurrent UTIs, it is important to get your diabetes under control and to follow-up with endocrinology. In addition, please call attached number to schedule an appointment with urology.
PLEASE RETURN TO EMERGENCY DEPARTMENT SHOULD YOU DEVELOP ACUTE WORSENING OF YOUR SYMPTOMS, FEVERS OR CHILLS, BLOOD IN YOUR URINE, or any other signs or symptoms worrisome to you.
Interventions
Interventions:
*Risk Screen - Suicide Last Done: 03/30/25 00:20
*General Assessment Last Done: 03/30/25 07:00
*Neglect/Abuse Screening Last Done: 03/30/25 00:20
*ED- Fall Risk Assessment Last Done: 03/30/25 04:55
*ED COVID-19 Vaccine History Last Done: 03/30/25 04:55
*Nursing Disposition Last Done: 03/30/25 07:00
UV-Gkvxhp-Pbzlowzncm Assessment Last Done: 03/30/25 04:55
ED-Male Genitourinary Assessment Last Done: 03/30/25 04:55
Discharge Date and Time
Discharge Date/Time: 03/30/25 07:00
Print Language: TAIWANESE
[2025-03-30] MEDS: NSS 1000 IV (05:06)
[2025-03-30] MEDS: TORADOL 15 MG IV (05:07)
[2025-03-30 05:11] VITALS: BMI 32.9
[2025-03-30 05:17] VITALS: BP 116/69
[2025-03-30 06:00] VITALS: BP 116/63
[2025-03-30 07:00] VITALS: BP 117/77
== END 2025-03-30 07:00 | disposition home or self-care (01) ==
LOC: EMR 23:59
PROVIDERS: Emergency Medicine; EMERGENCY PHYSICIAN Student in an Organized Health Care Education/Training Program; FAMILY PHYSICIAN Family Medicine
DX: N39.0 Urinary tract infection, site not specified (principal); E11.9 Type 2 diabetes mellitus without complications; J45.909 Unspecified asthma, uncomplicated; Z79.4 Long term (current) use of insulin; F17.290 Nicotine dependence, other tobacco product, uncomplicated
CPT/HCPCS: 96374; 96361; 99284; 74176; 80053; 81003; 81015; 85025; 87086

== ENCOUNTER 2025-04-16 02:17 | Emergency (ER) | payer OTHER, SELFPAY ==
[2025-04-16 02:17] VITALS: BMI 29.5
[2025-04-16 02:19] VITALS: BP 132/77
[2025-04-16 02:36] VITALS: BP 132/72
[2025-04-16 02:36] LABS: Urine Albumin Negative (Neg - Trace); Urine Bilirubin Negative (Negative); Urine Character Slightly Cloudy (Clear); Urine Color Amber; Urine Glucose 4+ (Negative); Urine Ketone Negative (Negative); Urine Leukocyte 2+ (Negative); Urine Nitrite Negative (Negative); Urine Occult Blood Negative (Negative); Urine Specific Gravity 1.015 (<1.030); Urine Urobilinogen Negative (Neg - 1+)
[2025-04-16 03:00] VITALS: BP 110/64
[2025-04-16 03:03] LABS: Urine Squamous Cell 0-2 /LPF (Few)
[2025-04-16 03:05] LABS: Urine Bacteria Few (Negative); Urine White Cell >100 /HPF (0-5)
[2025-04-16 03:18] LABS: Glucose - Point of Care 349 mg/dl (70-99)
[2025-04-16] MEDS: NSS 1000 IV (04:17)
[2025-04-16 04:18] VITALS: BP 118/79
[2025-04-16 04:20] LABS: % Basophils 0.5 % (0-2); % Immature Granulocytes 0.2 % (0-0.5); % Lymphocytes 42.8 % (20.5-51.1); % Monocytes 4.4 % (1.7-9.3); % Neutrophils 51.1 % (42.2-75.2); Absolute Basophils 0.1 10^3/uL (0-0.2); Absolute Eosinophils 0.1 10^3/uL (0-0.7); Absolute Lymphocytes 4.3 10^3/uL (1.2-3.4); Absolute Monocytes 0.4 10^3/uL (0.1-0.6); Absolute Neutrophils 5.1 10^3/uL (1.4-6.5); Hematocrit 39.8 % (39.0-52.0); Hemoglobin 13.8 g/dL (13.0-18.0); Mean Corp Hgb Conc. 34.7 g/dL (33.0-37.0); Mean Corpuscular Hgb 29.2 pg (27.0-31.0); Mean Corpuscular Volume 84.3 fL (80.0-94.0); Mean Platelet Volume 10.3 fL (7.4-10.4); Nucleated Red Blood Cells % 0 % (-); Platelet Count 234 10^3/uL (130-400); Red Blood Cell Count 4.72 10^6/uL (4.70-6.10); Red Cell Dist. Width 12.6 % (11.5-14.5); White Blood Cell Count 10.1 10^3/uL (4.8-10.8)
[2025-04-16 04:34] LABS: AST (SGOT) 20 U/L (17-59); Albumin 4.3 g/dl (3.5-5.0); Alkaline Phosphatase 62 U/L (38-126); Blood Urea Nitrogen 14 mg/dl (9-20); Calcium 9.7 mg/dl (8.4-10.2); Carbon Dioxide 23 mmol/L (22-30); Chloride 106 mmol/L (98-107); Estimated Creatinine Clearance > 125 ml/min; Glucose 296 mg/dl (70-99); Potassium 3.8 mmol/L (3.5-5.1); Sodium 139 mmol/L (135-145); Total Bilirubin 0.6 mg/dl (0.2-1.3); eGFR > 60.00
[2025-04-16 04:47] LABS: ALT (SGPT) < 30 U/L (0-50)
[2025-04-16 05:00] VITALS: BP 116/81
--- NOTE | 2025-04-16 05:13 | ED.GENMED ---
History of Present Illness
General
Chief Complaint: Urinary Symptoms
Source: patient
Time Seen by Provider: 04/16/25 02:36
History of Present Illness
History of Present Illness:
24-year-old male presents again with dysuria, urinary frequency and urgency. Patient states he has been on antibiotics several times in recent past but has not followed up with urology. Does have a history of diabetes. Denies fevers. No
vomiting. No back pain. Is circumcised. Denies sexual transmitted infection concerns. No pustulous drainage from the penis
Past History
Past History
ED Past Medical History: Asthma, IDDM, Psychiatric (Anxiety, Depression, OCD) and Other (Pilonidal cyst, Pneumomediastinum. )
ED Past Surgical History: Urological (Circumcision October 2018)
Social History
Tobacco: Vaping
Alcohol: Occasional
Drug: Marijuana
Personal: Single
Living: with family
Employment: Employed
Family History
Family History: Diabetes
Phy Exam
Physical Exam
Physical Exam:
CONSTITUTIONAL Patient alert and oriented to person, place and time. Well-appearing. Vital signs reviewed.
HEAD atraumatic, normocephalic.
EYES eyelids normal to inspection, Extraocular muscles intact, Conjunctiva normal, Sclera normal.
NECK normal range of motion, Trachea midline, no jugular venous distention.
RESPIRATORY CHEST No respiratory distress noted, Chest expansion equal
ABDOMEN abdomen nontender, Bowel sounds normal. No distention.
Rectal exam prostate is moderately tender
BACK normal inspection, no obvious deformities
UPPER EXTREMITY range of motion normal, Motor strength normal, no cyanosis, no edema.
LOWER EXTREMITY range of motion normal, Motor strength normal, no cyanosis, no edema.
NEURO Speech normal, No focal motor deficits, Brandon coma scale 15, Memory normal, Cranial Nerves intact to screening exam.
SKIN skin warm, dry, and normal in color.
Course
Orders/Labs/Results
Orders:
Orders
04/16/25 02:28
Urinalysis Reflex To Culture Urgent
Date Specimen was Collected: 04/16/25
Time Specimen was Collected: :
Urine Microscopic Reflex Cult Urgent
Urine Culture Urgent
OVIDIO Source: U
Specimen Description:
Date Specimen was Collected: 04/16/25
Time Specimen was Collected: :
04/16/25 03:13
Bedside Glucose- Treatment ONCE
04/16/25 04:07
IV Insert/Care/Rem.- Treatment PRN
04/16/25 04:11
Complete Blood Count/With Diff Urgent
Comprehensive Metabolic Panel Urgent
04/16/25 04:16
0.9% Sodium Chloride 1000 ml [Nss] 1,000 ml IV BOLUS
Abnormal Lab Results
04/16/25 04/16/25 04/16/25
03:17 04:11
Absolute Lymphs (auto) 4.3 H 10^3/uL
(1.2-3.4)
Glucose 296 H mg/dl
(70-99)
Leukocyte Esterase Rfl 2+ A
(Negative)
Urine RBC 7-10 A /HPF
(0-2)
Urine WBC (Reflex) >100 A /HPF
(0-5)
Urine Bacteria (Reflex) Few A
(Negative)
Urine Glucose 4+ A
(Negative)
POC Glucose 349 H mg/dl
(70-99)
04/16/25 04:11
04/16/25 04:11
Vital Signs
Initial and Last Documented VS:
Initial Vital Signs
Temp Pulse Resp BP Pulse Ox
98.3 F 57 14 132/77 97
04/16/25 02:19 04/16/25 02:19 04/16/25 02:19 04/16/25 02:19 04/16/25 02:19
Last Documented Vital Signs
Temp Pulse Resp BP Pulse Ox
98.3 F 57 14 118/79 96
04/16/25 02:19 04/16/25 02:19 04/16/25 02:19 04/16/25 04:18 04/16/25 04:45
MDM/Problems Addressed
Differential Diagnosis Includes:
UTI, kidney stone, prostatitis, DKA, Abbe's gangrene
MDM/Problems Addressed:
Urinary tract infection, prostatitis, acute severe hyperglycemia
*Pulse Oximetry
Patient hypoxic: no
*Critical Care Note
Total Time (30-74mins, 75-104mins- exclusive of procedures): Not Applicable
Data Reviewed
Source: patient
Further Testing Considered But Not Given:
Considered CT imaging but patient does appear well in no clinical concern for ureteral obstruction
Patient Management
Escalation/DeEscalation of care consider admission/obs:
The patient definitely needs to follow-up with urology. Given his tenderness of his prostate question whether he has not had full treatment and has had a prostatitis. Will treat with 3 weeks of antibiotics but referred to follow-up with urology
prior to the completion. Labs grossly unremarkable with exception of hyperglycemia. Does need better outpatient for
ED Attending Note
-
Portions of this chart may have been created with voice recognition software.� Occasional wrong word or��sound alike� substitutions may have occurred due to the inherent limitations of voice recognition software.
Discharge Plan
Departure
Patient Disposition: Home (Routine Discharge)
Date of Disposition: 04/16/25
Time of Disposition: 05:23
Patient with high blood pressure during this ER visit?: No
Discharge Problem:
Acute prostatitis, Acute hyperglycemia
Instructions: Bacterial prostatitis
Prescriptions:
New
levofloxacin 500 mg tablet
500 mg PO DAILY 21 Days Qty: 21 0RF
No Action
insulin glargine [Lantus U-100 Insulin] 100 unit/mL Solution
35 unit SC HS
insulin aspart U-100 [Novolog U-100 Insulin aspart] 100 unit/mL Solution
1 sliding scale dose SC AC
Rx Instructions:
24-40 units
alprazolam 0.5 mg Tablet
0.5 mg PO HS PRN (Reason: anxiety)
albuterol sulfate 90 mcg/actuation HFA aerosol inhaler
2 puff INHALATION R Q4HPRN PRN (Reason: WHEEZING)
budesonide-formoterol [Symbicort] 1 PUFF HFA aerosol inhaler
2 puff inhalation R BID 30 Days Qty: 1 0RF
sulfamethoxazole-trimethoprim [Bactrim DS] 800-160 mg tablet
1 tab PO BID 7 Days Qty: 14 0RF
Referrals:
Jaret Tilley MD [Active] -
Sushant Ballard MD [Family Provider] -
Activity Restrictions/Additional Instructions:
It is imperative that you follow-up with urology. Please call the referral above to make an appointment. Is also very important to follow-up with endocrinology for better management of your blood sugar. Return immediately for vomiting, fevers,
worsening pain, abdominal pain or any other concerns.
Interventions
Interventions:
*Risk Screen - Suicide Last Done: 04/16/25 03:32
*General Assessment Last Done: 04/16/25 03:32
*Neglect/Abuse Screening Last Done: 04/16/25 03:32
*ED- Fall Risk Assessment Last Done: 04/16/25 03:32
*ED COVID-19 Vaccine History Last Done: 04/16/25 03:32
ED-Male Genitourinary Assessment Last Done: 04/16/25 03:30
Discharge Date and Time
Print Language: PERUVIAN
== END 2025-04-16 05:50 | disposition home or self-care (01) ==
LOC: EMR 02:17
PROVIDERS: EMERGENCY PHYSICIAN Emergency Medicine; FAMILY PHYSICIAN Family Medicine
DX: N41.0 Acute prostatitis (principal); E11.65 Type 2 diabetes mellitus with hyperglycemia; J45.909 Unspecified asthma, uncomplicated; F41.8 Other specified anxiety disorders; F42.9 Obsessive-compulsive disorder, unspecified; F17.290 Nicotine dependence, other tobacco product, uncomplicated; Z83.3 Family history of diabetes mellitus
CPT/HCPCS: 99283; 96360; 80053; 81003; 81015; 82962; 85025; 87086; 87147; 87186